=== PATIENT | female | born 1960 | race Two or more races ===

== ENCOUNTER 2024-07-22 12:03 | Outpatient (AMB) | payer BC, SELFPAY ==
--- NOTE | 2024-07-22 11:53 | PD.ORTHTELE ---
Med/Allergies Allergies & Medications Allergies No Known Allergies Allergy (Verified 07/22/24 11:53) Medication Reconciliation fluoxetine 20 mg capsule 20 mg PO QDAY 07/29/23 [History Confirmed 07/22/24] meloxicam 15 mg tablet 15 mg PO QDAY 07/29/23 [History Confirmed 07/22/24] acetaminophen 325 mg tablet 650 mg (2 x 325 mg) PO QID #90 tabs 08/04/23 [Rx Confirmed 07/22/24] aspirin 81 mg tablet,delayed release 81 mg PO BID #60 tabs 08/04/23 [Rx Confirmed 07/22/24] doxycycline hyclate 100 mg tablet 100 mg PO BID #14 tabs 08/04/23 [Rx Confirmed 07/22/24] gabapentin 300 mg capsule 300 mg PO .qhs #30 caps 08/04/23 [Rx Confirmed 07/22/24] oxycodone 5 mg tablet 5 mg PO Q6H PRN pain #28 tabs 08/04/23 [Rx Confirmed 07/22/24] sennosides 8.6 mg-docusate sodium 50 mg tablet (Senna-S) 1 tab-cap PO QDAY #30 tabs 08/04/23 [Rx Confirmed 07/22/24] sennosides 8.6 mg-docusate sodium 50 mg tablet (Senna-S) 2 tab PO QDAY #40 tabs 08/22/23 [Rx Confirmed 07/22/24] Subjective Visit Visit for: follow up visit, knee (BILATERAL) and x-rays (RESULTS) Immunization / Flu Flu Vaccine in the Last 12 Months: No Flu Vaccine Exclusion Criteria: No Exclusion Criteria History of Present Illness Chief complaint: XRAY RESULTS BILATERAL KNEES Patient is a 63-year-old female status post bilateral total knee replacements. She is doing well. There Is no pain at all. She is very happy with the progress. SHe is using no assistive device Personal History Red flag PMH: smoker (NON SMOKER ) Pain Pain level (0-10): 0 Ambulatory data Ambulatory device: none Treatments Improvement with previous injections: No Improvement with PT: No Improvement with NSAIDS: no Review of Systems Review of Systems: All systems negative unless otherwise noted in HPI. Assessment and Plan Problem List (1) History of total right knee replacement: Status: Acute Plan: Patient is a 63-year-old female who is status post left total knee replacement. She is doing well. She should work with physical therapy. Her xrays look good. We will see her in 6-12 months (2) Arthritis of both knees: Status: Acute Office Procedures GNS Level of Care Nursing/Assessment Patient Status: Established Patient Nursing Assessment/Reassesment: Medication Reconciliation, Update PMH in EMR and Vital Signs Coordination of Care: Complex Care and Chronic Disease 1-5, Education Complex Pt/Fam, Consent,records obtained, informed consent, 1 Ins Authorization, Results/Orders obtained and Staff clarify orders Special Needs: Language special needs Established Patient Charge Established Patient Point Assignment: 110 Telehealth Telemed Phone/Video with patient at home & Dr,PA,OXYACETYLENE BURNER: Yes
== END 2024-07-22 12:03 | disposition home or self-care (01) ==
LOC: HODSRG 12:03
PROVIDERS: PCP Family Medicine; Referring Provider Family Medicine; Supervising Provider Orthopaedic Surgery Adult Reconstructive Orthopaedic Surgery; Visit Provider Orthopaedic Surgery Adult Reconstructive Orthopaedic Surgery
DX: Z96.651 Presence of right artificial knee joint (principal); M17.0 Bilateral primary osteoarthritis of knee
CPT/HCPCS: 99212; G0463